=== PATIENT | female | born 1970 | race American Indian/Alaskan Native ===

== ENCOUNTER → 2016-10-23 | Outpatient (CLI) | payer OTHER ==
--- NOTE | 2016-10-26 15:16 | MR ---
EXAM DATE: 10/23/16 PATIENT'S AGE: 46 Patient: HOME ENRIQUEZ Facility: [place], [place] Site . Site : 1970 Study: MRI Spine Lumbar [id number]/24/2017 7:00:15 PM Ordering Physician: Victorino Pelaez Final Report: Indication: Low back pain. Reported history of schwannoma removal at an outside facility in 2015. Comparison: None. Technique: Sagittal T1, T2, and STIR sequences. Axial T1 and T2 weighted sequences.. Findings: Normal vertebral body alignment. No fractures. No vertebral body loss of height. No spondylolisthesis. No ligamentous injury. Normal marrow signal. No suspicious osseous lesions. Normal conus terminates at L1. There is a heterogeneous T2 hyperintense mass of the right neural foramen at L3- 4 (series 201, image 12; series 1, image 23) measuring approximately 1.5 x 1.6 cm. There is associated smooth remodeling and expansion of the right neural foramen. No evidence of intradural extension. 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 It is uncertain if this represents a residual or recurrent tumor based off the clinical history. T11-12: Disc degeneration with loss disc height. No narrowing of spinal canal. No neural foraminal narrowing. T12-L1 and L1-2: No spinal canal or neural foraminal narrowing. L2-3: No spinal canal or neural foraminal narrowing. L3-4: Mild annular bulge. No narrowing of spinal canal. 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 No narrowing of left neural foramen. At L4-5: Disc degeneration with loss of disc height. Diffuse disc bulge and endplate osteophytic ridging. No narrowing of spinal canal. Facet arthropathy contributes to mild narrowing of the bilateral neural foramina. Mild bilateral facet arthropathy. L5-S1: Disc degeneration with posterior disc bulge. Tiny annular fissure along the left paracentral zone. No narrowing of spinal canal. No impingement of the traversing S1 nerve roots. Mild narrowing of the bilateral neural foramina. Mild bilateral facet arthropathy. Degenerative changes of the SI joints. Normal perispinal soft tissues. Impression: 1. Normal alignment. No fractures. No spondylolisthesis. 2. At L3-4, there is a heterogeneous T2 hyperintense mass within the right neural foramen with smooth remodeling and expansion of the right neural foramen. 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 In the absence of prior imaging, it is uncertain if this represents a residual or recurrent tumor. 3. At L4-5, disk degeneration with loss of disk height. Mild narrowing of the bilateral foramina 4. At L5-S1, posterior disc bulge and tiny annular fissure. No spinal canal narrowing. Mild narrowing of the bilateral neural foramina Dictated by Sahil Moscoso MD @ Oct 24 2016 1:20PM (Electronic Signature) Report Signed by Proxy and Original Signed Document filed in the Medical Record. JALYN
== END ==
LOC: MW.MRI 17:49
DX: M54.5 Low back pain (principal)
CPT/HCPCS: 72148; 72148-26

== ENCOUNTER → 2016-10-26 | Outpatient (CLI) | payer OTHER ==
--- NOTE | 2016-10-26 14:09 | US ---
EXAMINATION: Ultrasound guided liver biopsy HISTORY: Other specified Disease of liver COMPARISON: CT dated 09/18/2016 TECHNIQUE: The procedure, risks, and benefits were discussed with the patient. Risks included bleedi ng, infection, and pain. Written informed consent was obtained. An adequate location was noted betwe en the ribs laterally and the right hepatic lobe. No notable visualization of the left hepatic lobe was noted in the subxiphoid region. The right lateral area was sterilely prepped and 8. 1% lidocaine was administered for local anesthesia. Using ultrasound guidance a 16-gauge core biopsy was obtaine d. The patient tolerated the procedure well. No immediate complications. Short-term follow-up imagin g of the post biopsy region demonstrated no bleeding. The patient was monitored for approximately 1 hour and demonstrated no significant pain or discomfort. The patient was discharged. The patient was given instructions to call the radiology department are present to the ER significant pain, lighthe adedness, or tachycardia was noted. IMPRESSION: Successful ultrasound-guided liver core biopsy.
--- NOTE | 2016-10-27 09:14 | US ---
EXAMINATION: Limited hepatic duplex HISTORY: Liver disease COMPARISON: None TECHNIQUE: Grayscale, color Doppler, spectral Doppler images obtained of the liver. FINDINGS/IMPRESSION: The liver is increased in echotexture, consistent with fatty infiltration, with out a focal hepatic mass. The portal waveforms appear normal.
== END | disposition home or self-care (01) ==
LOC: MW.US 08:57
PROVIDERS: ATTEND Internal Medicine Gastroenterology
DX: K76.89 Other specified diseases of liver (principal)
CPT/HCPCS: 47000; 88307; 88312; 88313; 93975; 93975-26

== ENCOUNTER 2016-10-27 17:50 | Emergency (ER) | payer OTHER ==
[2016-10-27] MEDS ORDERED: Sodium Chloride 0.9% 1,000 ML IV ONE ×2 (18:02→19:59)
[2016-10-27] MEDS ORDERED: Ondansetron 4 MG/2 ML SDV IVPUSH ONE (18:02)
--- NOTE | 2016-10-27 18:09 | EDM.PDOC ---
ED HPI GI/ABDOMINAL - General Chief Complaint: Abdominal Pain Stated Complaint: PT VOMITING,DIARRHEA Time Seen by Provider: 10/27/16 17:55 - History of Present Illness INITIAL COMMENTS - FREE TEXT/NARRATIVE: History of present illness: [46-year-old female presenting with complaints of shakes, chills, fever as well as nausea vomiting and diarrhea x1 day. Patient indicates that she did have a liver biopsy and she was concerned that might be the cause of this.] Review of systems: As per history of present illness and below otherwise all systems reviewed and negative. Past medical history: As per history of present illness and as reviewed below otherwise noncontributory. Surgical history: As per history of present illness and as reviewed below otherwise noncontributory. Social history: No reported history of drug or alcohol abuse. Family history: As per history of present illness and as reviewed below otherwise noncontributory. Physical exam: HEENT: Atraumatic, normocephalic, pupils reactive, negative for conjunctival pallor or scleral icterus, mucous membranes moist, throat clear, neck supple, nontender, trachea midline. Lungs: Clear to auscultation, breath sounds equal bilaterally, chest nontender. Heart: S1S2, regular, negative for clicks, rubs, or JVD. Abdomen: Soft, nondistended, nontender. Negative for masses or hepatosplenomegaly. Negative for costovertebral tenderness. Pelvis: Stable nontender. Genitourinary: Deferred. Rectal: Deferred. Extremities: Atraumatic, negative for cords or calf pain. Neurovascular unremarkable. Neuro: Awake, alert, oriented. Cranial nerves II through XII unremarkable. Cerebellum unremarkable. Motor and sensory unremarkable throughout. Exam nonfocal. Patient without nausea and vomiting while in ED, the pain now under control. Of incidental findings it was noted by radiologist that patient indicated on her history that she had had a hysterectomy when in fact there was a uterus noted upon CT exam. This information was relayed to the patient who will do this information she seems to. Diagnostics: [CBC, CMP, amylase, lipase,] Therapeutics: [IV fluid, Zofran] Impression: [Viral syndrome] Plan: [hydrate, rest,take meds prn] Definitive disposition and diagnosis as appropriate pending reevaluation and review of above. - Related Data Allergies/ADRs: Allergies Allergy/AdvReac Type Severity Reaction Status Date / Time No Known Allergies Allergy Verified 05/04/16 10:10 Home Meds: Home Meds Estrogens,Esterified [Menest] 0.3 mg PO DAILY 05/04/16 [History] Hydrochlorothiazide 50 mg PO DAILY 05/04/16 [History] Vitamin E 400 unit PO DAILY 05/04/16 [History] Losartan [Cozaar] 50 mg PO BID 10/27/16 [History] Past Medical History Other HEENT History: wears contacts/glasses Cardiovascular History: Reports: Hypertension Respiratory History: Reports: None Gastrointestinal History: Reports: None Genitourinary History: Reports: None Musculoskeletal History: Reports: Back pain, chronic Neurological History: Reports: None Psychiatric History: Reports: None Endocrine/Metabolic History: Reports: Obesity/BMI 30+ Hematologic History: Reports: None Immunologic History: Reports: None Oncologic (Cancer) History: Reports: None Dermatologic History: Reports: None - Past Surgical History Head Surgeries/Procedures: Reports: None HEENT Surgical History: Reports: Naso-sinus surgery Cardiovascular Surgical History: Reports: None Respiratory Surgical History: Reports: None GI Surgical History: Reports: Appendectomy, Cholecystectomy Female Surgical History: Reports: None Neurological Surgical History: Reports: Lumbar spine Other Neurological Surgeries/Procedures: hx back surgery in January 2016 Musculoskeletal Surgical History: Reports: Arthroscopic knee Oncologic Surgical History: Reports: None Dermatological Surgical History: Reports: None Social & Family History - Tobacco Use Smoking Status *Q: Never Smoker - Recreational Drug Use Recreational Drug Use: No Drug Use in Last 12 Months: No ED ROS GENERAL - Review of Systems Review Of Systems: See Below (See history of present illness) ED EXAM, GI/ABD - Physical Exam Exam: See Below (See history of present illness) Course - Vital Signs Last Recorded V/S: Last Vital Signs Temp 36.6 C 10/27/16 19:56 Pulse 96 10/27/16 19:56 Resp 16 10/27/16 19:05 BP 121/78 10/27/16 19:56 Pulse Ox 95 10/27/16 18:05 - Orders/Labs/Meds Orders: Active Orders 24 hr Category Date Time Status Abdomen Pelvis w Cont [CT] Stat Exams 10/27/16 19:40 Ordered Labs: Laboratory Tests 10/27/16 10/27/16 10/27/16 Range/Units 18:40 18:40 18:40 WBC 10.67 (4.0-11.0) K/uL RBC 5.70 (4.30-5.90) M/uL Hgb 17.3 H (12.0-16.0) g/dL Hct 49.2 H (36.0-46.0) % MCV 86.3 (80.0-98.0) fL MCH 30.4 (27.0-32.0) pg MCHC 35.2 (31.0-37.0) g/dL RDW Std Deviation 44.1 (28.0-62.0) fl RDW Coeff of Servando 14 (11.0-15.0) % Plt Count 225 (150-400) K/uL MPV 11.10 (7.40-12.00) fL Neut % (Auto) 88.1 H (48.0-80.0) % Lymph % (Auto) 7.0 L (16.0-40.0) % Kemper % (Auto) 4.6 (0.0-15.0) % Eos % (Auto) 0.1 (0.0-7.0) % Baso % (Auto) 0.2 (0.0-1.5) % Neut # (Auto) 9.4 H (1.4-5.7) K/uL Lymph # (Auto) 0.8 (0.6-2.4) K/uL Kemper # (Auto) 0.5 (0.0-0.8) K/uL Eos # (Auto) 0.0 (0.0-0.7) K/uL Baso # (Auto) 0.0 (0.0-0.1) K/uL Nucleated RBC % 0.0 /100WBC Nucleated RBCs # 0 K/uL Sodium 138 (136-146) mmol/L Potassium 3.5 (3.5-5.1) mmol/L Chloride 105 (98-110) mmol/L Carbon Dioxide 18 L (21-31) mmol/L BUN 20 (6.0-23.0) mg/dL Creatinine 1.3 (0.6-1.5) mg/dL Est Cr Clr Drug Dosing 45.68 mL/min Estimated GFR (MDRD) 44.5 ml/min Glucose 171 H (60-110) mg/dL Calcium 10.1 (8.8-10.8) mg/dL Total Bilirubin 2.0 H (0.1-1.5) mg/dL AST 229 H (5-40) IU/L ALT 375 H (8-54) IU/L Alkaline Phosphatase 130 (40-150) Total Protein 9.9 H (6.0-8.0) g/dL Albumin 4.9 (3.5-5.0) g/dL Globulin 5.0 H (2.0-3.5) g/dL Albumin/Globulin Ratio 1.0 L (1.3-2.8) Amylase 56 (10-90) U/L Lipase 17 (7-80) U/L HCG, Qual NEGATIVE (NEG) Meds: Medications Discontinued Medications Generic Name Dose Route Start Last Admin Trade Name Stefanoq PRN Reason Stop Dose Admin Sodium Chloride 1,000 mls @ 999 mls/hr 10/27/16 18:02 10/27/16 18:49 Normal Saline IV 10/27/16 19:02 999 mls/hr STAT ONE Administration Sodium Chloride 1,000 mls @ 999 mls/hr 10/27/16 19:59 10/27/16 20:39 Normal Saline IV 10/27/16 20:59 999 mls/hr STAT ONE Administration Iodixanol 50 ml 10/27/16 20:00 10/27/16 20:00 Visipaque 320 IVPUSH 10/27/16 20:01 50 ml ONETIME STA Administration Ondansetron HCl 8 mg 10/27/16 18:02 10/27/16 18:50 Zofran IVPUSH 10/27/16 18:03 8 mg ONETIME ONE Administration Departure - Departure Time of Disposition: 21:30 Disposition: Home, Self-Care 01 Condition: good Clinical Impression: Gastroenteritis Instructions: Viral Gastroenteritis, Adult, [id number], Abdominal Pain, Adult , [id number], Nausea and Vomiting, Adult, [id number] Forms: ED Department Discharge Additional Instructions: The following information is given to patients seen in the emergency department who are being discharged to home. This information is to outline your options for follow-up care. We provide all patients seen in our emergency department with a follow-up referral. The need for follow-up, as well as the timing and circumstances, are variable depending upon the specifics of your emergency department visit. If you don't have a primary care physician on staff, we will provide you with a referral. We always advise you to contact your personal physician following an emergency department visit to inform them of the circumstance of the visit and for follow-up with them and/or the need for any referrals to a consulting specialist. The emergency department will also refer you to a specialist when appropriate. This referral assures that you have the opportunity for follow-up care with a specialist. All of these measure are taken in an effort to provide you with optimal care, which includes your follow-up. Under all circumstances we always encourage you to contact your private physician who remains a resource for coordinating your care. When calling for follow-up care, please make the office aware that this follow-up is from your recent emergency room visit. If for any reason you are refused follow-up, please contact the [facility] Emergency Department at and asked to speak to the emergency department charge nurse. Followup with your primary care provider one to 2 days Giving given some antiemetics per [facility] please take them as necessary Return to ER as needed as discussed - My Orders Last 24 Hours: My Active Orders 10/27/16 19:40 Abdomen Pelvis w Cont [CT] Stat - Assessment/Plan Last 24 Hours: My Active Orders 10/27/16 19:40 Abdomen Pelvis w Cont [CT] Stat
[2016-10-27] MEDS ORDERED: Iodixanol 652 MG/ML 50 ML Vial IVPUSH STA (20:00)
[2016-10-27 22:04] VITALS: BP 119/87
--- NOTE | 2016-10-28 14:50 | CT ---
EXAM DATE: 10/27/16 PATIENT'S AGE: 46 Patient: HOME ENRIQUEZ Facility: [place], [place] : 1970 Study: CT Abdomen/Pelvis [id number]/28/2017 8:24:31 PM Ordering Physician: Doctor Dejesus Final Report: INDICATION: Nausea and vomiting, pain, biopsy of liver yesterday. Prior history of appendectomy, cholecystectomy, and hysterectomy per patient. TECHNIQUE: CT abdomen and pelvis acquired with 50 cc Visipaque a IV contrast. COMPARISON: September 18, 2016 FINDINGS: Lower chest: Unremarkable. Liver: Unremarkable. No subcapsular fluid collection or perihepatic fluid. Spleen: Unremarkable. Pancreas: Unremarkable. Gallbladder and bile ducts: Status post cholecystectomy. Adrenal glands: Unremarkable. Kidneys: Unremarkable. GI tract: Unremarkable. Appendix is surgically absent per history. Vascular structures: Unremarkable. Lymph nodes: Unremarkable. Miscellaneous: Unremarkable. No free air or significant free fluid. Pelvic Organs: Unremarkable. Bones: Unremarkable for age. IMPRESSION: 1. No acute intra-abdominal process identified. 2. There is a history of hysterectomy per the patient but the uterus is present. Clinical correlation is needed. These findings were discussed with Dr. Henry at 9:00pm on 10/27/2016. Dictated by Adry Meyer MD @ Oct 27 2016 8:38PM (Electronic Signature) Report Signed by Proxy and Original Signed Document filed in the Medical Record. [facility]
== END 2016-10-27 22:00 | disposition home or self-care (01) ==
LOC: MW.ED 17:50
DX: K52.9 Noninfective gastroenteritis and colitis, unspecified (principal); I10 Essential (primary) hypertension; E66.9 Obesity, unspecified; Z68.30 Body mass index [BMI] 30.0-30.9, adult; Z90.49 Acquired absence of other specified parts of digestive tract; Z98.890 Other specified postprocedural states; Z79.899 Other long term (current) drug therapy
CPT/HCPCS: 74177; 80053; 82150; 83690; 84703; 85025; 87804; 96361; 96374; 99284; J2405; J7040; Q9967